=== PATIENT | female | born 1930 | race Caucasian/White ===

== ENCOUNTER 2016-05-04 10:00 | Inpatient (IN) ==
--- NOTE | 2016-06-23 14:35 | EKG Report ---
Test Performed on : 06/23/2016 2:27:53 PM Test Reason : pat Blood Pressure : / mmHG Vent. Rate : 060 BPM Atrial Rate : 060 BPM P-R Int : 172 ms QRS Dur : 094 ms QT Int : 432 ms P-R-T Axes : 049 -13 014 degrees QTc Int : 432 ms Normal sinus rhythm. Minimal voltage criteria for LVH, may be normal variant Possible Anterior infarct , age undetermined Abnormal ECG No previous ECGs available Confirmed by Benjamin NIETO, Noe Valladares ([id number]) on 06/23/2016 6:49:17 PM
[2016-06-23 15:04] LABS: MANUAL DIFF NEEDED? NO; URINE SOURCE CLEAN CATCH
[2016-06-23 15:11] LABS: BASO% 0.2 % (0.0-0.8); EOS# 0.17 X1000 (0.0-0.7); HEMATOCRIT 35.8 % (37.0-47.0); HEMOGLOBIN 11.6 g/dL (12.0-16.0); LYMPH# 1.44 X1000 (1.2-3.4); LYMPH% 33.6 % (20.5-51.1); MCH 30.1 PG (27-31); MCHC 32.4 g/dL (33-37); MCV 92.7 FL (81-99); MONO# 0.52 X1000 (0.11-0.59); MONO% 12.1 % (1.7-9.3); MPV 9.8 FL (7.4-10.4); NEUT% 50.1 % (42.2-75.2); PLT 127 X1000 (130-400); RBC 3.86 XMIL (4.2-5.4)
[2016-06-23 15:14] LABS: BILIRUBIN URINE NEGATIVE (NEGATIVE); BLOOD URINE TRACE (NEGATIVE); COLOR YELLOW; GLUCOSE URINE NEGATIVE (NEGATIVE); LEUKOCYTES URINE LARGE (NEGATIVE); NITRITE URINE NEGATIVE (NEGATIVE); PH URINE 5.5; PROTEIN URINE NEGATIVE (NEGATIVE); SP GRAVITY URINE 1.014; TURBIDITY URINE HAZY (CLEAR); URINE MICRO REVIEW NEEDED? YES; UROBILINOGEN URINE NORMAL (NORMAL)
[2016-06-23 15:17] LABS: UR EPITHELIAL CELLS <10 /HPF (<10); URINE BACTERIA NEGATIVE /HPF; URINE RBC 20-40 /HPF (<10)
[2016-06-23 15:20] LABS: INR 1.04
[2016-06-23 16:13] LABS: AGAP 11; BUN 16 mg/dL (8-22); CALCIUM 8.6 mg/dL (8.8-10.2); CHLORIDE 98 mmol/L (98-107); COSMO 269; POTASSIUM 3.8 mmol/L (3.5-5.1); SODIUM 134 mmol/L (136-145); TCO2 25 mmol/L (25-35)
[2016-06-29] MEDS ORDERED: COLACE ONE (10:29)
[2016-06-29] MEDS ORDERED: LYRICA ONE (10:29)
[2016-06-29] MEDS ORDERED: PEPCID ONE (10:30)
[2016-06-29] MEDS ORDERED: LR 1,000 ML ONE ×2 (10:30→14:44)
[2016-06-29] MEDS ORDERED: REGLAN ONE (10:30)
[2016-06-29] MEDS ORDERED: CELEBREX ONE (10:30)
[2016-06-29] MEDS ORDERED: KEFZOL 1 GM/D5W 1 GM/50 ML IVPB ONE (10:31)
[2016-06-29] MEDS ORDERED: TORADOL ONE (11:07)
[2016-06-29] MEDS ORDERED: CLAVE SECONDARY SET 11953 ONE (11:08)
[2016-06-29] MEDS ORDERED: NEOSPORIN G.U. IRRIGANT ONE (11:08)
[2016-06-29] MEDS ORDERED: EXPAREL 1.3% ONE (11:08)
[2016-06-29] MEDS ORDERED: VANCOMYCIN ONE (11:08)
[2016-06-29] MEDS ORDERED: MARCAINE 0.25% PF/EPI 1:200,000 ONE (11:08)
[2016-06-29] MEDS ORDERED: DURAMORPH ONE (11:08)
[2016-06-29] MEDS ORDERED: SODIUM CHLORIDE 0.9% ONE (11:08)
[2016-06-29] MEDS ORDERED: CYKLOKAPRON 1,000 MG/NS 2,000 MG/200 ML IVPB ONE (11:16)
[2016-06-29 12:13] LABS: URINE MICRO REVIEW NEEDED? NO; URINE SOURCE CATH
[2016-06-29 12:28] LABS: BILIRUBIN URINE NEGATIVE (NEGATIVE); BLOOD URINE NEGATIVE (NEGATIVE); COLOR YELLOW; GLUCOSE URINE NEGATIVE (NEGATIVE); LEUKOCYTES URINE NEGATIVE (NEGATIVE); NITRITE URINE NEGATIVE (NEGATIVE); PROTEIN URINE TRACE mg/dL (NEGATIVE); SP GRAVITY URINE 1.021; TURBIDITY URINE CLEAR (CLEAR); UROBILINOGEN URINE 2 mg/dL (NORMAL)
[2016-06-29 12:29] LABS: UR EPITHELIAL CELLS <10 /HPF (<10); URINE BACTERIA 4+ /HPF; URINE RBC <10 /HPF (<10); URINE WBC <10 /HPF (<10)
[2016-06-29] MEDS ORDERED: CYKLOKAPRON 1,000 MG/NS 1,000 MG/100 ML IVPB ONE (12:57)
[2016-06-29] MEDS ORDERED: NS 1,000 ML ONE (13:37)
[2016-06-29] MEDS ORDERED: DIPRIVAN 1% ONE (13:55)
[2016-06-29] MEDS ORDERED: MORPHINE ONE (13:56)
[2016-06-29] MEDS ORDERED: FENTANYL ONE (13:56)
--- NOTE | 2016-06-29 14:41 | Diag Imaging Result Document ---
PROCEDURE NAME: KNEE 1-2 VIEWS-RIGHT - 06/29/2016 RIGHT KNEE 2 VIEWS: FINDINGS: There has been prior orthopaedic replacement of the right knee. There is good alignment to the femoral and tibial components. No fracture or dislocation. There are anterior skin jesus and a superior surgical drain. IMPRESSION: Good alignment following orthopaedic replacement of the right knee.
[2016-06-29] MEDS ORDERED: EPHEDRINE ONE (14:44)
[2016-06-29] MEDS ORDERED: OFIRMEV 1000 MG/ISOTONIC SOLN 1,000 MG/100 ML BOTTLE ONE (14:44)
[2016-06-29] MEDS ORDERED: XYLOCAINE-MPF 2% ONE (14:44)
[2016-06-29] MEDS ORDERED: ZOFRAN ONE (14:44)
--- NOTE | 2016-06-29 15:13 | OPERATIVE NOTE ---
PROCEDURE DATE: 06/29/2016 PREOPERATIVE DIAGNOSIS: Degenerative arthritis of the right knee. POSTOPERATIVE DIAGNOSIS: Degenerative arthritis of the right knee. PROCEDURE: Right total knee arthroplasty DePuy Attune, size 5 narrow posterior stabilized femur, size 3 tibial base plate, a 5 mm rotating platform tibial insert, and a 32 mm medialized anatomic patella. SURGEON: Triston Webber MD. M[employer]AIN SERVICES MANAGER: JEANNETTE Mobley [employer] TECHNICIAN: Josafat Quintanilla RN. ANESTHESIA: General. IV FLUIDS: 1900 mL lactated Ringer's. ESTIMATED BLOOD LOSS: 75 mL. TOURNIQUET TIME: 80 minutes at 350 mmHg. COMPLICATIONS: None. INDICATION: The patient is an 85-year-old female with a chronic history of pain and discomfort over the right knee. X-rays revealed significant degenerative arthritis and recommendation to proceed with right total knee arthroplasty was offered. Risks and benefits of surgery were explained, including the risks of anesthesia, , bleeding, infection, failure to relieve pain, postop stiffness, nerve injury, blood clots, and other imponderables. All questions were answered. Patient and family wished to proceed with surgery. DETAILS OF OPERATION: The patient was taken to the operating room and placed supinely on the operating table. Once adequate anesthesia was obtained, patient's right lower extremity subsequently prepped and draped in usual sterile fashion. Esmarch was used to exsanguinate the right lower extremity. The tourniquet was inflated to 350 mmHg. A standard anterior incision was made with a skin knife. Medial and lateral skin envelopes were developed. Medial patella fat pad was excised. Retractors were then placed. Approximately 1 cm anterior to the PCL insertion, a starting reamer was passed. An intramedullary guide with a distal femoral cutting block was pinned into position. Distal femoral cut was then performed. A sizing block was placed and measured to size 5. Corresponding holes were placed. Anterior, posterior, and chamfer cuts were then made. Attention was then turned to the proximal tibia where further resection of the ACL and PCL was performed. Using the extramedullary guide, the proximal tibia was resected in a standard fashion and had good alignment confirmed with the alignment linda. The medial lateral meniscus were excised. Curved osteotome was used to remove the posterior osteophytes. A spacer block was placed and had good soft tissue balance in both flexion and extension. Attention was then turned to the proximal tibia. Once again a size 3 appeared to be correct size. This was pinned in, position followed by a central reamer and a fin punch. A box cutting guide was then placed on the distal femur. A box cut was performed. A size 5 femoral component was then placed and 2 lug holes were drilled. Trial tibial insert was placed and had good soft tissue balancing. Patella was everted and resected in the standard fashion. Patella clamp was then placed. The size 32 appeared to be correct size. The holes were drilled. The trial patella component was then placed and had good patellofemoral tracking. The trial components were then removed. Copious irrigation was then performed with antibiotic pulsatile lavage while vancomycin was mixed with cement on back table. Sequential cementing was then performed, first with the tibial tray and excess cement was removed with a Quinton. This was followed by the femoral component. Excess cement was removed with a Quinton. A trial tibial insert was placed and axial loading and full extension was maintained while cement cured. The was patella cemented in standard fashion. Patella clamp was placed. Exparel was placed in deep soft tissue, as well as subcutaneous tissue while cement was curing. After the cement had cured, trial tibial insert 5 mm appeared to be correct size. While exchanging the tibial insert, Exparel was placed in the deep posterior capsule. The wound was copiously irrigated with antibiotic pulsatile lavage. A 5 mm rotating platform tibial insert was then placed and had good soft tissue balancing and good range of motion and good patellofemoral tracking. A 1/8 Hemovac drain was placed and was not sewn in. The wound was copiously once again with antibiotic pulsatile lavage. #1 Vicryl was then used to repair the arthrotomy, followed by 2-0 Vicryl to repair the subcutaneous tissue and skin jesus. Adaptic, sterile 4 x 4, Webril, and a cryo unit, followed by an Van wrap was applied to the right lower extremity. The patient tolerated procedure well. No complications. Transferred to the recovery room in stable condition. cc: Triston Webber MD
[2016-06-29] MEDS ORDERED: VERSED ONE (17:18)
[2016-06-29] MEDS ORDERED: MORPHINE IV PRN (17:19)
[2016-06-29] MEDS ORDERED: OXY IR PO PRN (17:30)
[2016-06-29] MEDS ORDERED: MILK OF MAGNESIA PO PRN (17:30)
[2016-06-29] MEDS ORDERED: ZOFRAN PO PRN (17:30)
[2016-06-29] MEDS: KEFZOL 1 GM/D5W 1 GM/50 ML IVPB IV SCH (18:25)
[2016-06-29] MEDS: TYLENOL PO SCH ×2 (18:26→23:43)
[2016-06-29] MEDS: NS 1,000 ML IV SCH (18:26)
[2016-06-29] MEDS: COLACE PO SCH (23:02)
[2016-06-29] MEDS: PERIDEX MT SCH (23:02)
[2016-06-29] MEDS: COREG PO SCH (23:02)
[2016-06-30] MEDS: NS 1,000 ML IV SCH ×2 (03:11→18:07)
[2016-06-30] MEDS: KEFZOL 1 GM/D5W 1 GM/50 ML IVPB IV SCH (03:11)
[2016-06-30] MEDS: XARELTO PO SCH (05:20)
[2016-06-30] MEDS: TYLENOL PO SCH ×5 (05:20→22:33)
[2016-06-30 05:43] LABS: HEMATOCRIT 30.4 % (37.0-47.0); HEMOGLOBIN 9.7 g/dL (12.0-16.0)
[2016-06-30 05:58] LABS: AGAP 8; BUN 12 mg/dL (8-22); CALCIUM 7.8 mg/dL (8.8-10.2); CHLORIDE 108 mmol/L (98-107); COSMO 283; POTASSIUM 3.4 mmol/L (3.5-5.1); SODIUM 142 mmol/L (136-145); TCO2 26 mmol/L (25-35)
--- NOTE | 2016-06-30 08:56 | PROGRESS NOTE ---
DATE: 06/30/2016 SUBJECTIVE: The patient was an 85-year-old female, who is 1 day status post right total knee arthroplasty. Patient is currently resting comfortably and has no complaints. OBJECTIVE: Extremities: On physical exam, patient's right lower extremity dressing is intact. The calf is soft. She is neurovascularly intact distally and has active dorsiflexion and plantar flexion. LABS: Her hemoglobin is 9.7, hematocrit is 30.4. IMPRESSION: Postoperative day #1 status post right total knee arthroplasty. PLAN: At this point, discussed treatment options with the patient. At this time, we will change her dressing, discontinue her drain. We will also Hep-Lock her IV. The patient will be mobilized in physical therapy and consult [facility] for discharge planning for inpatient rehabilitation. cc: Triston Webber MD
[2016-06-30] MEDS ORDERED: DECADRON IV ONE (09:00)
[2016-06-30] MEDS: COREG PO SCH ×2 (09:23→21:51)
[2016-06-30] MEDS: PEPCID PO SCH (09:23)
[2016-06-30] MEDS: PERIDEX MT SCH ×2 (09:23→21:51)
[2016-06-30] MEDS: COLACE PO SCH ×2 (09:23→21:51)
[2016-07-01] MEDS: XARELTO PO SCH (05:17)
[2016-07-01] MEDS: TYLENOL PO SCH ×4 (05:17→23:49)
[2016-07-01 06:00] LABS: HEMATOCRIT 27.8 % (37.0-47.0)
[2016-07-01] MEDS: COLACE PO SCH ×2 (08:23→20:00)
[2016-07-01] MEDS: PERIDEX MT SCH ×2 (08:23→20:01)
[2016-07-01] MEDS: PEPCID PO SCH (08:23)
[2016-07-01] MEDS: COREG PO SCH ×2 (08:23→20:00)
--- NOTE | 2016-07-01 09:56 | PROGRESS NOTE ---
DATE: 07/01/2016 SUBJECTIVE: The patient is a pleasant, 85-year-old female who is 2 days status post right total knee arthroplasty. She is currently resting comfortably and has no complaints. OBJECTIVE: Extremities: On physical exam, patient's right lower extremity wound looks good. There are no signs or symptoms of infection. Calf is soft. She has active dorsiflexion and plantar flexion. LABORATORY: Her hemoglobin is 9.0. Her hematocrit is 27.8. IMPRESSIONS: Postoperative day #2 status post right total knee arthroplasty. PLAN: At this point, the patient will continue to progress with therapy. [facility] Supervisor has been consulted for discharge planning for inpatient rehabilitation. cc: Triston Webber MD
[2016-07-01] MEDS: OXY IR PO PRN ×2 (12:22→18:10)
--- NOTE | 2016-07-01 14:18 | DISCHARGE SUMMARY ---
ADMISSION DATE: 06/29/2016 DISCHARGE DATE: 07/02/2016 ADMITTING DIAGNOSIS: Degenerative arthritis of the right knee. DISCHARGE DIAGNOSIS: 1. Degenerative arthritis of the right knee status post right total knee arthroplasty. 2. Acute blood loss anemia. BRIEF HISTORY: The patient is a pleasant 85-year-old female who has a chronic history of pain and discomfort of the right knee. Continued pain and discomfort despite appropriate nonoperative treatment. X-rays reveal the significant degenerative osteoarthritis and recommendation to proceed with right total knee arthroplasty was offered. Risks and benefits were explained. All questions were answered. Patient and family agreed with treatment plan. HOSPITAL COURSE: The patient was admitted to the hospital and underwent right total knee arthroplasty. The patient tolerated the procedure well. This patient had uneventful postoperative course. By postoperative day #2, her hemoglobin and hematocrit had decreased to 9.0 and 27.8 and she was asymptomatic. It was felt the patient would benefit from inpatient rehabilitation and patient and family were agreeable to this. Prior to discharge, the patient is afebrile, tolerating a regular diet. Pain was well controlled on p.o. medication. Her wound looked good. There were no signs or symptoms of infection. She was progressing with physical therapy. DISCHARGE MEDICATIONS: 1. OxyIR 5 mg 1 p.o. q.4 hours p.r.n. pain. 2. Xarelto 10 mg p.o. daily x14 days. 3. Remaining medications, please see medication list. DISCHARGE INSTRUCTIONS: 1. The patient will be discharged for inpatient rehabilitation. 2. Consult Physical Therapy with full weightbearing right lower extremity and gait training and range of motion exercises per total knee protocol. 3. Discontinue jesus in 11 days. 4. Follow up in the office in 3-4 weeks. cc: Triston Webber MD
--- NOTE | 2016-07-01 17:14 | Diag Imaging Result Document ---
PROCEDURE NAME: CHEST-PORTABLE - 07/01/2016 PORTABLE CHEST: FINDINGS: The lungs are well expanded. Tortuous thoracic aorta. There are no infiltrates. Questionable tiny left effusion. The vessels are not distended. IMPRESSION: 1. Questionable tiny left pleural effusion. 2. Tortuous aorta.
[2016-07-01] MEDS: NS 1,000 ML IV SCH (18:46)
[2016-07-02] MEDS: OXY IR PO PRN ×2 (00:48→05:28)
[2016-07-02] MEDS: TYLENOL PO SCH ×2 (05:26→12:18)
[2016-07-02] MEDS: XARELTO PO SCH (05:26)
[2016-07-02 05:50] LABS: HEMATOCRIT 24.3 % (37.0-47.0); HEMOGLOBIN 7.8 g/dL (12.0-16.0)
[2016-07-02 08:06] VITALS: BP 142/61
[2016-07-02] MEDS: COLACE PO SCH (10:26)
[2016-07-02] MEDS: COREG PO SCH (10:26)
[2016-07-02] MEDS: PEPCID PO SCH (10:26)
[2016-07-02] MEDS: PERIDEX MT SCH (10:26)
== END 2016-07-02 14:45 ==
LOC: SURHOLD 06-29 03:38 → 4N 06-29 14:46
PROVIDERS: ADMIT Orthopaedic Surgery Adult Reconstructive Orthopaedic Surgery; ATTEND Orthopaedic Surgery Adult Reconstructive Orthopaedic Surgery